=== PATIENT | female | born 1995 ===

== ENCOUNTER 2018-09-12 14:29 | Emergency (ER) | payer MEDICAID, OTHER ==
[2018-09-12 15:10] VITALS: BMI 38.7
[2018-09-12 15:45] LABS: SQUAMOUS EPITHIAL 12 /hpf (0-5); URINE BACTERIA OCC (<OCC); URINE BILIRUBIN NEGATIVE (NEGATIVE); URINE BLOOD 3+ (NEGATIVE); URINE CALCIUM OXALATE CRYSTALS MOD /hpf (<OCC); URINE CLARITY Hazy (Clear); URINE COLOR Amber (YELLOW); URINE GLUCOSE (UA) NORMAL (Normal); URINE LEUKOCYTE ESTERASE 2+ Leu/uL (Negative); URINE PROTEIN 1+ mg/dL (NEGATIVE)
[2018-09-12] MEDS ORDERED: Lactated Ringer's 1,000 ML IV ONE (16:08)
[2018-09-12 16:39] LABS: BARBITURATES, UR NEGATIVE (NEGATIVE); BENZODIAZEPINES, UR NEGATIVE (NEGATIVE); OPIATES, UR NEGATIVE (NEGATIVE); PHENCYCLIDINE, UR NEGATIVE (NEGATIVE)
[2018-09-12 17:07] LABS: BASO % 0.4 % (0.0-2.0); EOS # 0.1 K/uL (0.0-0.7); EOS % 1.5 % (0.0-4.0); HEMOGLOBIN 10.5 g/dL (11.0-16.0); LYMPH # 1.7 K/uL (1.0-4.3); LYMPH % 18.7 % (20.0-40.0); MEAN CELL VOLUME 79.4 fL (81.0-99.0); MEAN CORPUSCULAR HEMOGLOBIN 25.5 pg (27.0-31.0); MEAN CORPUSCULAR HGB CONC 32.2 g/dL (33.0-37.0); MEAN PLATELET VOLUME 9.6 fL (7.2-11.7); MONO # 0.6 K/uL (0.0-0.8); MONO % 6.8 % (0.0-10.0); NEUT # 6.5 K/uL (1.8-7.0); NEUT % 72.6 % (50.0-75.0); NRBC % 0.1 % (0.0-2.0); RBC 4.11 Mil/uL (3.80-5.20); RED CELL DISTRIBUTION WIDTH 15.1 % (11.5-14.5); WHITE BLOOD COUNT 8.9 K/uL (4.8-10.8)
[2018-09-12 17:19] LABS: ALB/GLOB RATIO 1.2 (1.0-2.1); ALBUMIN 3.9 g/dL (3.5-5.0); ALT/SGPT 22 U/L (9-52); AST/SGOT 24 U/L (14-36); BLOOD UREA NITROGEN 7 mg/dL (7-17); CALCIUM 9.6 mg/dl (8.6-10.4); GFR NON-AFRICAN AMERICAN > 60
--- NOTE | 2018-09-12 17:53 | US ---
Indication: blood in urine, ALEJANDRA estimated weight Comparison: None Technique: Real-time ultrasound was performed through the pelvis. Findings: There is a single living fetus in cephalic presentation. Amniotic fluid volume is within normal limits. Anterior placenta. The placenta is not previa. There are no adnexal masses or cysts evident. The study was performed for emergent evaluation, and the whole anatomic survey of the fetus was not performed. This should be performed on an outpatient elective basis as clinically warranted. Measurements and calculations: Fetus has a composite sonographic age of 30 weeks 1 day. This calculation is based on the biparietal diameter, head circumference, abdominal circumference, and femur length. Estimated heart rate 150.2 beats per min. Estimated weight 1520 g. Biophysical profile: movements 2/2 breathing 2/2 tone 2/2 Amniotic fluid 2/2 Total score impression: 12/08 Impression: Single living fetus with a composite sonographic age of 30 weeks 1 days. Estimated heart rate 150.2 beats per min. Estimated weight 1520 g. Biophysical profile of 8 out of 8.
--- NOTE | 2018-09-12 18:01 | US ---
Date of service: 09/12/2018 PROCEDURE: Ultrasound of the Kidneys HISTORY: blood in urine, COMPARISON: None available. TECHNIQUE: Sonogram of the kidneys. FINDINGS: RIGHT KIDNEY: Measures: 12.1 x 5.9 x 5.0 cm. No hydronephrosis, obstructing calculus, or renal cyst identified. LEFT KIDNEY: Measures: 12.1 x 5.4 x 6.0 cm. 1.0 x 0.9 x 0.8 cm nonobstructing calculus. No hydronephrosis, obstructing calculus, or renal cyst identified. OTHER FINDINGS: None. IMPRESSION: 1.0 x 0.9 x 0.8 cm nonobstructing left renal calculus. No hydronephrosis.
[2018-09-12] MEDS ORDERED: cefTRIAXone IV 1 gm in Dextros 50 ML IVPB SCH (18:30)
[2018-09-12] MEDS ORDERED: cefTRIAXone IV 1 gm in Dextros 1 GM in Dextrose 5% In Water 50 ML IVPB SCH (18:30)
[2018-09-12] MEDS ORDERED: Dextrose 5%/Lactated Ringer's 1,000 ML IV SCH (19:15)
--- NOTE | 2018-09-12 20:05 | OBDCSUM ---
Datetime: 09/12/2018 19:45 Discharged to, Provider: Home Follow up at, Provider: CLINIC Disch Instr Activity: Normal activity Disch Instr Diet: Regular Discharge Instructions, Provider: Specific instructions as noted Discharge Time: 09/12/2018 19:46 Follow up in weeks, Provider: 3-4 days or as needed Disch Referrals: None Contraception discussed, Prov: No Disch Activity Restrictions: No exercising; No lifting; Minimize stair-climbing; No sexual activity; Nothing in vagina - [place], tampons, douche Discharge Comment, Provider: US report reviewed with patient and GA c/w her EDC and at 30.4 weeks wi th nl ALEJANDRA and EFW.BPP 8/8 Tracing reassuring Irregular contractions ressolved FFN Negative UTI and received one dose of Rocephin and Rx for Macrobid 100 po BID x 7 days Renal US with + Nonobstructing small Stone that most likely is the reason for the Hematuria. Denied any pain, no more bleeding. +FM and no more urinary discomfort. D/C home in stable and Satisfactory condition, with instructions to increase po water intake signi ficantly and with Rx for Macrobid BID x 7 days. Advised to pelvic rest and to follow up at her Clinic [facility]. Discharge Diagnosis Prov Other: S/P Irregular contractions UTI, Nephrolithiasis S/P Dehydration
[2018-09-13 00:53] VITALS: BP 113/51; PULSE 87; RESP 18; TEMP 98.2
== END 2018-09-12 19:55 | disposition home or self-care (01) ==
LOC: C.EROB 14:29
DX: O23.43 Unspecified infection of urinary tract in pregnancy, third trimester (principal); O26.93 Pregnancy related conditions, unspecified, third trimester; N20.0 Calculus of kidney; Z3A.30 30 weeks gestation of pregnancy
CPT/HCPCS: 76770; 76815; 76818; 80053; 80324; 80345; 80346; 80349; 80353; 80358; 80361; 81001; 82731; 83992; 85025; 86850; 86900; 87086; 96374; 99283; J0696; J2405; J7120